=== PATIENT | female | born 1985 ===

== ENCOUNTER 2017-10-23 14:51 | Outpatient (CLI) | payer OTHER ==
[2017-10-24 07:10] LABS: HEPATITIS B SURFACE AB Reactive (.)
[2017-10-24 10:09] LABS: VARICELLA ZOSTER IgG 1067 index (Immune >165)
== END 2017-10-23 23:59 | disposition home or self-care (01) ==
LOC: LAB 14:51
PROVIDERS: ATTEND Radiology Diagnostic Radiology
DX: Z01.818 Encounter for other preprocedural examination (principal); L92.8 Other granulomatous disorders of the skin and subcutaneous tissue
CPT/HCPCS: 36415; 71045; 86706